=== PATIENT | female | born 1965 | race Caucasian/White ===

== ENCOUNTER → 2020-06-10 | Outpatient (CLI) | payer OTHER ==
[2020-06-11 09:15] LABS: VITAMIN D, 25-HYDROXY 32.4 ng/mL (30.0-100.0)
[2020-06-11 13:10] LABS: RHEUMATOID ARTHRITIS FACTOR <10.0 IU/mL (0.0-13.9)
== END ==
LOC: LAB 09:34
PROVIDERS: Nurse Practitioner Family
DX: D89.9 Disorder involving the immune mechanism, unspecified (principal); M25.50 Pain in unspecified joint; R76.8 Other specified abnormal immunological findings in serum; R53.83 Other fatigue
CPT/HCPCS: 36415; 81001; 82570; 82728; 84156; 85652; 86140; 86200; 86431